=== PATIENT | male | born 1985 | race Two or more races ===

== ENCOUNTER 2021-01-29 22:11 | Inpatient (IN) | payer OTHER ==
[~2021-01-29] VITALS: Ht 172.7 cm; Wt 74.4 kg
[2021-01-29 23:00] VITALS: BP 138/85
[2021-01-29] MEDS ORDERED: DICY10CA37 PO (23:20)
[2021-01-29] MEDS ORDERED: FAMO-131 PO (23:20)
[2021-01-29] MEDS ORDERED: FLUT16SP16 NS (23:20)
[2021-01-29] MEDS ORDERED: Z GUARD REMEDY 2 OZ OINT TP PRN (23:30)
[2021-01-29] MEDS ORDERED: MAGNESIUM HYDROXIDE 30 ML UDC PO PRN (23:30)
[2021-01-29] MEDS ORDERED: ZOLPIDEM TARTRATE 5 MG TABLET PO PRN (23:30)
[2021-01-29] MEDS ORDERED: MAG HYDROX/AL HYDROX/SIMETH 30 ML UDC PO PRN (23:30)
[2021-01-29] MEDS ORDERED: ACETAMINOPHEN 325 MG TABLET PO PRN (23:30)
[2021-01-29] MEDS ORDERED: HYDROCODONE/APAP 5/325MG TABLET PO PRN (23:30)
[2021-01-29] MEDS ORDERED: ONDANSETRON HCL/PF 4 MG/2 ML VIAL IVP PRN (23:30)
--- NOTE | 2021-01-29 23:30 | NUR ---
ADMITTED PT FROM [facility]IA [facility] WITH EMT FROM [place], PT IS ALERT ORIENTED X4 ON ROOM AIR NO SIGN AND SYMPTOMS OF DISTRESS SPO2 100% ABLE TO WAKE TO HIS BED WITH OUT ASSISTANCE, V/S CHECKED AND RECORDED, ADMISSION ASSESSMENT DONE,ALLERGIES WAS DOCUMENTED, HEAD TO TOE ASSESSMENT DONE, HOOKED TO TELE MONITOR WITH READING SINUS RHYTHM 80'S BELONGINGS WAS ACCOUNTED AND RECORDED, ROOM ORIENTATION IS DONE, HAVE RAC# 20 PATENT AND FLUSHED, BED ON LOWEST POSITION AND LOCKED SIDE RAILS UP X2 CALL LIGHT WITHIN REACH WILL CONT TO MONITOR Addendum: 01/29/21 at 2350 by DAMION JOSEPH RN PT CC ON [facility] IS CHEST PAIN THAT RADIATE TO HIS JAW AND SHOULDER, UPON ADMISSION PT DENIES ANY CHEST PAIN OR ANY PAIN AT ALL
[2021-01-30] MEDS ORDERED: LORAZEPAM 0.5 MG TABLET PO PRN (00:30)
[2021-01-30 04:00] VITALS: BP 105/69
[2021-01-30 06:43] LABS: BASOPHILS # (AUTO) 0.1 /CMM (0.0-0.2); BASOPHILS % (AUTO) 1.7 % (0.0-2.0); EOSINOPHILS % (AUTO) 13.5 % (0.0-6.0); HEMATOCRIT 46 % (39-51); LYMPHOCYTES # (AUTO) 2.6 /CMM (0.8-4.8); LYMPHOCYTES % (AUTO) 37.1 % (20.0-44.0); MEAN CORPUSCULAR HGB CONC 35 g/dl (31.0-36.0); MEAN CORPUSCULAR VOLUME 86 fL (80-96); MONOCYTES # (AUTO) 0.5 /CMM (0.1-1.30); MONOCYTES % (AUTO) 7.4 % (2.0-12.0); NEUTROPHILS # (AUTO) 2.8 /CMM (1.8-8.9); NEUTROPHILS % (AUTO) 40.3 % (43.0-81.0); PLATELET COUNT (AUTO) 310 /CMM (150-450); RED BLOOD CELL COUNT(AUTO) 5.39 MIL/uL (4.5-6.0); WHITE BLOOD COUNT (AUTO) 6.9 K/uL (4.3-11.0)
--- NOTE | 2021-01-30 06:58 | NUR ---
PT ON BED AWAKE, ON ROOM AIR SPO2 98% NO SIGN OF RESPIRATORY DISTRESS, NO PAIN COMPLAINT AT THIS MOMENT, TELE MONITOR READS SINUS RHYTHM 70-80'S, ALL NEEDS ATTENDED, BED ON LOWEST POSITION AND LOCKED SIDE RAILS UP X2 CALL LIGHT WITHIN REACH WILL ENDORSED TO AM SHIFT NURSE
--- NOTE | 2021-01-30 07:05 | NUR ---
RN OPENING NOTES RECEIVED PT AWAKE, A/O X4. STABLE ON ROOM AIR. NO SOB OR ANY SIGNS OF RESPIRATORY DISTRESS. TELE MONITOR READS SR. NO PAIN REPORTED AT THIS MOMENT. AMBULATORY. SKIN IS INTACT. SAFETY MEASURES IN PLACE. CALL LIGHT WITHIN REACH. BED LOCKED AND IN LOWEST POSITION WITH SIDE RAILS UP X2. WILL CONTINUE TO MONITOR.
[2021-01-30 07:25] LABS: ALBUMIN 3.9 g/dL (3.4-5.0); BILIRUBIN,TOTAL 1.7 mg/dL (0.2-1.0); CALCIUM, SERUM 9.2 mg/dL (8.5-10.1); CREATININE 0.7 mg/dL (0.6-1.3); MAGNESIUM 2.3 mg/dL (1.8-2.4); POTASSIUM 3.4 mmol/L (3.5-5.1)
[2021-01-30 08:00] VITALS: BP 109/73
[2021-01-30] MEDS ORDERED: ASPIRIN 81 MG TAB.CHEW PO SCH (09:00)
[2021-01-30] MEDS ORDERED: FLUTICASONE PROPIONATE 16 GM BOTTLE NS SCH (09:00)
[2021-01-30] MEDS ORDERED: FAMOTIDINE (20 MG) 20 MG TABLET PO SCH (09:00)
[2021-01-30] MEDS ORDERED: DICYCLOMINE HCL 10 MG CAPSULE PO SCH (09:00)
--- NOTE | 2021-01-30 09:00 | NUR ---
RN NOTES DR. JAMISON ORDERED CT ANGIO OF THE HEART, CONSENT SIGNED. PT BROUGHT TO CERTIFIED PEST CONTROL TECHNICIAN PER WHEELCHAIR. IN STABLE CONDITION. VS WNL.
[2021-01-30] MEDS ORDERED: IV NS 0.9% 250 ML IV ONE (09:09)
[2021-01-30] MEDS ORDERED: METOPROLOL TARTRATE INJ 5 MG/5 ML AMPUL ONE (09:09)
[2021-01-30] MEDS ORDERED: NITROGLYCERIN 0.4 MG/TAB BOTTLE ONE (09:09)
[2021-01-30] MEDS ORDERED: IOHEXOL-350 100 ML VIAL IV ONE (09:09)
[2021-01-30] MEDS ORDERED: CT SWABBABLE VALVE TRANS SET 1 EA INFUS.SET MC ONE (09:09)
[2021-01-30 09:20] VITALS: BP 114/66
--- NOTE | 2021-01-30 09:22 | NUR ---
CTA PROCEDURE WELL TOLERATED BY THE PT. PT IS AAOX4, NOT IN RESPIRATORY DISTRESS, V/S STABLE, KEPT RESTED AND COMFORTABLE. REPORT GIVEN TO TONY WU FOR [facility].
[2021-01-30] MEDS ORDERED: METOPROLOL TARTRATE INJ 5 MG/5 ML AMPUL IVP PRN (09:30)
[2021-01-30] MEDS ORDERED: NITROGLYCERIN 0.4 MG/TAB BOTTLE SL ONE (09:30)
--- NOTE | 2021-01-30 09:30 | NUR ---
RN NOTES PT BROUGHT BACK TO ROOM. NOT IN DISTRESS. VS STABLE.
[2021-01-30] MEDS ORDERED: POTASSIUM CHLORIDE 20 MEQ TAB.PRT.SR PO SCH (10:30)
--- NOTE | 2021-01-30 12:00 | NUR ---
RN NOTES PT DISCHARGED HOME. IN STABLE CONDITION, NO PAIN REPORTED. INSTRUCTIONS GIVEN TO PT, VERBALIZED UNDERSTANDING. SKIN IS INTACT. VACCINATIONS UP TO DATE. ACCOMPANIED TO LOBBY PER WHEELCHAIR, WENT HOME VIA UBER.
== END 2021-01-30 11:50 | disposition home or self-care (01) | DRG 756 ==
LOC: TELE1 22:46
PROVIDERS: ADMIT Nurse Practitioner Acute Care; ATTEND Nurse Practitioner Acute Care
DX: F41.9 Anxiety disorder, unspecified (principal); Z82.3 Family history of stroke; Z87.891 Personal history of nicotine dependence; Z82.49 Family history of ischemic heart disease and other diseases of the circulatory system
CPT/HCPCS: 36415; 75574; 80053-TC; 80061-TC; 83735-TC; 84100-TC; 84484-TC; 85025-TC; 87081-TC; G0378; J3490; J7050; Q9967